=== PATIENT | male | born 1955 | race Hispanic/Latino ===

== ENCOUNTER 2017-03-29 22:18 | Emergency (ER) | payer OTHER ==
[~2017-03-29] VITALS: Ht 185.4 cm; Wt 104.3 kg
[2017-03-29] MEDS ORDERED: SODIUM CHLORIDE 0.9% 1000ML 1,000 ML IV ONE (22:30)
[2017-03-29] MEDS ORDERED: ACETAMINOPHEN 325 MG TAB PO PRN (22:30)
[2017-03-29 22:41] LABS: BASOPHILS % 0.4 % (0.0-1.0); EOSINOPHILS # (AUTO) 0.1 (0.0-0.4); EOSINOPHILS % 1.3 % (0.0-6.0); HEMATOCRIT 36.9 % (38.2-49.6); HEMOGLOBIN 12.1 g/dL (14.0-18.0); LYMPHOCYTES # (AUTO) 2.1 (1.0-3.2); LYMPHOCYTES % 19.9 % (18.0-39.1); MEAN CORPUSCULAR HEMOGLOBIN 28.8 pg (28-32); MEAN CORPUSCULAR HGB CONC 32.8 g/dL (31-35); MEAN CORPUSCULAR VOLUME 87.9 fL (81-99); MONOCYTES # (AUTO) 0.8 (0.2-0.8); MONOCYTES % 8.1 % (4.4-11.3); NEUTROPHILS # (AUTO) 7.2 (2.1-6.9); NEUTROPHILS % 69.8 % (38.7-80.0); PLATELET COUNT 215 x10e3/uL (140-360); RED CELL DISTRIBUTION WIDTH 13.9 % (11.7-14.4)
[2017-03-29] MEDS: ALBUTEROL/IPRATROPIUM 3 ML NEB NEB ONE ×2 (22:50→23:50)
[2017-03-29 22:57] LABS: ALANINE AMINOTRANSFERASE 26 IU/L (0-55); ALBUMIN 3.3 g/dL (3.5-5.0); ALBUMIN/GLOBULIN RATIO 0.7 (0.8-2.0); ALKALINE PHOSPHATASE 70 IU/L (40-150); ANION GAP 13.8 mmol/L (8-16); BLOOD UREA NITROGEN 13 mg/dL (7-26); BUN/CREATININE RATIO 12 (6-25); CALCIUM 8.7 mg/dL (8.4-10.2); CARBON DIOXIDE 24 mmol/L (22-29); CHLORIDE 106 mmol/L (98-107); CREATININE, SERUM 1.05 mg/dL (0.72-1.25); EST GLOMERULAR FILTRATION RATE > 60 ML/MIN (60-); GLUCOSE 81 mg/dL (74-118); POTASSIUM 3.8 mmol/L (3.5-5.1); SODIUM 140 mmol/L (136-145)
--- NOTE | 2017-03-29 23:17 | Diagnostic Imaging Report ---
CHEST 2 VIEWS, Technique: CHEST 2 VIEWS Comparison: None Clinical history: Cough, fever DISCUSSION: Heart/mediastinum: Mildly enlarged cardiac silhouette. Tortuous aorta with arch calcifications. Lungs/pleural spaces: Hyperinflation without consolidation or edema. Questionable nodular opacity over the right upper lobe. No pleural effusions or pneumothorax. IMPRESSION: Questionable nodular opacity over the right upper lobe. Consider short-term follow-up radiographs in 6-[address] Signed by: Dr Meg Rizvi MD on 03/29/2017 11:13 PM
[2017-03-30 00:50] VITALS: BP 135/77
== END 2017-03-30 01:25 | disposition home or self-care (01) ==
LOC: ER 22:18
DX: R50.9 Fever, unspecified (principal); R05 Cough; J15.9 Unspecified bacterial pneumonia
CPT/HCPCS: 36415; 71046; 80053; 83605; 85025; 87040; 87400; 94640; 96360; 99284; J7030

== ENCOUNTER → 2017-12-30 | Outpatient (CLI) | payer OTHER ==
[~2017-12-30] MED LIST: IOPAMIDOL 370 MG/ML 200 ML INFUS..BTL INJ ONE; SODIUM CHLORIDE 0.9% 100 ML 100 ML ONE
[2017-12-30 08:47] LABS: CREATININE, SERUM 1.22 mg/dL (0.72-1.25)
--- NOTE | 2017-12-30 11:17 | Diagnostic Imaging Report ---
PROCEDURE:CT ANGIO CHEST W/ WO COMPARISON:Chest radiograph 03/29/2017. INDICATIONS:ANEURYSM TECHNIQUE: Multi-detector CT technology with Dose Reduction was employed. Images were obtained after the administration of 100 cc Isovue 370 intravenously. For optimization of anatomic evaluation, multiplanar and volume rendering reconstructions were performed. Advanced 3-D off-line postprocessing were performed on a dedicated stand-alone workstation under the direct supervision of the interpreting physician. \DLP: 494.47 mGy-cm FINDINGS: Aortic Measurements at the level of the: Sinuses of Valsalva: 3.9 cm. Sinotubular junction is preserved. Aortic root: 3.5 cm Proximal ascending thoracic aorta: 4.4 cm Mid ascending thoracic aorta: 4.5 cm Aortic arch: 4 cm Isthmus: 3 cm Proximal descending thoracic aorta: 3.4 cm Mid descending thoracic aorta: 2.8 cm Distal descending thoracic aorta: 2.7 cm Abdominal aorta at celiac axis: 2.9 cm. Moderate calcified and noncalcified atherosclerotic plaque throughout the abdominal aorta. Atherosclerotic minto coronary artery calcifications. Atherosclerotic calcifications of the great vessel origins which are otherwise normal in caliber and configuration. The main pulmonary artery, right and left pulmonary arteries are patent and of normal caliber, without filling defects. The study was not optimized for detection of lobar or segmental pulmonary emboli. Lungs: Linear and reticular opacities in the inferior lingula and bilateral lower lobes, left greater than right compatible with subsegmental atelectasis or scar. Questionable nodular opacity in the right upper lobe described on the comparison chest radiograph is shown to represent a small area of scar/architectural distortion as seen on series 5 image 19. No airspace consolidation, gross fibrotic change, honeycombing, or bronchiectasis. Airways: The trachea, mainstem bronchi, and central lobar and segmental bronchi are patent. Mediastinum: No axillary, hilar, or mediastinal lymphadenopathy. Visualized portions of the thyroid gland appear normal. Postsurgical changes of coronary artery bypass. No pericardial effusion. Mild cardiomegaly. Upper abdomen: Visualized portions of the liver, pancreatic body and tail, and adrenal glands are unremarkable. Heterogeneity of splenic attenuation reflects arterial phase of scan. Bones and soft tissues: No acute fractures or osseous destructive lesions. Median sternotomy defect. No focal soft tissue abnormalities. 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 Postsurgical sequela of coronary artery bypass graft. Scattered foci of linear scar or subsegmental atelectasis within the lungs as above. Dictated by: Viktor Ayers M.D. on 12/30/2017 at 11:26 Electronically approved by: Viktor Ayers M.D. on 12/30/2017 at 11:26
== END ==
LOC: CT 07:50
PROVIDERS: ATTEND Internal Medicine Cardiovascular Disease
DX: I71.2 Thoracic aortic aneurysm, without rupture (principal)
CPT/HCPCS: 36415; 71275; 82565; 84520; Q9967

== ENCOUNTER → 2018-06-17 | Outpatient (CLI) | payer BC ==
[2018-06-17 12:06] LABS: CREATININE, SERUM 1.38 mg/dL (0.72-1.25)
--- NOTE | 2018-06-17 16:35 | Diagnostic Imaging Report ---
EXAM: CT Chest WITH contrast 06/17/2018 11:35 AM INDICATION: Atherosclerotic heart disease COMPARISON: Chest x-ray, 03/29/2017 TECHNIQUE: Chest was scanned utilizing a multidetector helical scanner from the lung apex through the level of the adrenal glands with administration of IV contrast. Coronal and sagittal reformations were obtained. CTA protocol was performed. Dose modulation, iterative reconstruction, and/or weight based adjustment of the mA/kV was utilized to reduce the radiation dose to as low as reasonably achievable. IV CONTRAST: 100 mL of Omnipaque 300 RADIATION DOSE: Total DLP: mGy*cm Estimated effective dose: (DLP x 0.014 x size factor) mSv COMPLICATIONS: None For optimization of anatomic evaluation, multiplanar reconstruction, maximum intensity projections, and advanced 3-D off-line postprocessing were performed on a dedicated stand-alone workstation under the direct supervision of the interpreting physician. FINDINGS: LINES/ TUBES: None. LUNGS AND AIRWAYS: No pulmonary consolidation or focal airspace opacity. Moderate centrilobular emphysematous changes with bilateral perihilar bronchial wall thickening that may be seen with bronchitis. Trachea and main bronchi are clear. PLEURA: No pleural effusion, pneumothorax or pleural calcification. There is mild pleural thickening along the posterior lateral upper right hemithorax which accounts for the right upper chest density on the previous chest x-ray. HEART AND MEDIASTINUM: The thyroid gland is normal. No mediastinal, hilar or axillary lymphadenopathy. The heart is normal in size.. There is no pericardial effusion. There are postoperative changes of coronary bypass surgery. No dissection of the thoracic aorta. There are atherosclerotic plaques of the thoracic aorta. Coronary artery calcifications are seen. Thoracic aorta: Ascending thoracic aorta, 4.7 x 4.9 cm. Borderline aneurysm. Proximal aortic arch, 4.0 cm. Ectatic. Mid aortic arch, 3.4 cm. Ectatic Distal aortic arch, 3.3 cm. Ectatic Mid descending aorta, 2.6 cm Distal descending aorta, 2.7 cm Diaphragmatic hiatus, 2.9 cm Main pulmonary artery 2.9 cm. UPPER ABDOMEN: Included portions of the liver, spleen, pancreas, and adrenals and kidneys show no focal abnormality. BONES: No acute or suspicious bony lesions. Wire sternotomy sutures are noted. SOFT TISSUES: Superficial surrounding soft tissue unremarkable. IMPRESSION: 1. Moderate centrilobular emphysematous change with bilateral perihilar bronchial wall thickening that may be seen with bronchitis. No pulmonary opacity or pleural effusion. 2. Dilatation of the ascending thoracic aorta measuring 4.9 cm, borderline aneurysm. In addition, the aortic arch is ectatic measuring up to 3.4 cm diameter. No aortic dissection. Staff: Maria Dolores Signed by: Dr. Gurdeep Whitten M.D. on 06/17/2018 4:32 PM
== END ==
LOC: CT 11:14
PROVIDERS: ATTEND Internal Medicine Cardiovascular Disease
DX: I25.10 Atherosclerotic heart disease of native coronary artery without angina pectoris (principal)
CPT/HCPCS: 36415; 71275; 82565; 84520; Q9967